=== PATIENT | male | born 1965 | race Caucasian/White ===

== ENCOUNTER 2025-08-21 09:25 | Emergency (ER) | payer MEDICAID, SELFPAY ==
[2025-08-21] VITALS (12 sets, daily range): BP systolic 171–218; BP diastolic 98–128; PULSE 75–104; RESP 16–98; TEMP 36.6–37.1; O2SAT 96–99; BMI 27.1
--- NOTE | 2025-08-21 09:34 | EKG_ITS ---
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
--- NOTE | 2025-08-21 10:09 | PC.NURSE ---
Patient to er via ems with c/o sudden onset of feeling weak and legs felt like legs were giving out on him while he was working on trailer at home, patient states he did not fall. Currently patient denes pain, skin warm, dry and pink. BP 218/128 and states he has not taking his bp medication or diabetic medication in approx. 1 year. FSBS 172, chart up to be seen by er provider, ekg completed, shown to dr. Chapa and placed on chart, daughter at bedside, call light within reach.
--- NOTE | 2025-08-21 10:13 | XR_ITS ---
Examination: AP chest single view Technique one AP portable upright chest single view Date and time: August 21, 2025, 10:19 AM INDICATIONS: Shortness of breath today. FINDINGS: No significant cardiac enlargement No pneumonia or pulmonary edema. Prominent osteopenia IMPRESSION: No pneumonia or pulmonary edema
--- NOTE | 2025-08-21 10:24 | EKG_ITS ---
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
--- NOTE | 2025-08-21 10:24 | PC.LAC ---
Alerted by him clerk that patient's heart rate increased to 170bpm, patient atrial fibrillation on the monitor, patient states he feels weak like he did earlier. Repeat EKG ordered.
[2025-08-21 10:40] LABS: INR 1.0 (0.9-1.3); Prothrombin Time 10.2 Seconds (9.0-12.2)
[2025-08-21 10:44] LABS: Alanine Aminotransferase 27 U/L (10-49); Albumin, Serum 4.4 gm/dL (3.5-5.0); Albumin/Globulin Ratio 2.0 (1.2-2.2); Alkaline Phosphatase 56 U/L (46-116); Anion Gap 13 (7-16); Aspartate Amino Transferase 33 U/L (0-34); BUN/Creatinine Ratio 9 Ratio (12-20); Bilirubin,Total 0.7 mg/dL (0.3-1.2); Blood Urea Nitrogen 16 mg/dL (9-23); Calcium 9.3 mg/dL (8.3-10.6); Calcium (Corrected) 9.3 mg/dL (8.5-10.1); Carbon Dioxide 22.9 mMol/L (20.0-31.0); Chloride 105 mMol/L (98-107); Creatinine (Component) 1.8 mg/dL (0.6-1.3); Estimated Creatinine Clearance 39.9 mL/min (>60); Globulin 2.2 gm/dL (2.3-3.5); Glucose 165 mg/dL (74-106); Osmolality,Calculated 286 (275-295); Potassium 3.4 mMol/L (3.4-5.1); Sodium 141 mMol/L (136-145); Total Protein 6.6 gm/dL (5.7-8.2); Troponin I 0.039 ng/mL (0.0-0.045); eGFR 43 See Note
--- NOTE | 2025-08-21 10:56 | PC.NURSE ---
Dr. Monk aware of patient's bp 215/118, Dr. Chapa at bedside.
--- NOTE | 2025-08-21 11:06 | PD.EDWEAK ---
ED Weakness RME/HPI General Chief complaint: Weakness Stated complaint: HYPERTENSION Time Seen by Provider: 08/21/25 10:28 Arrival date/time: 08/21/25 09:25 Mode of arrival: EMS Limitations: no limitations RME / HPI RME / HPI Narrative: Patient is a 59 year old male with PMH hypertension and Diabetes BIBA presented from home after acute onset shortness of breath, clammy skin, weakness and some mild pressure to chest, while working to get ready for a trip earlier this morning. After resting inside for 20 minutes he felt a bit better and called for ambulance. Patient states this has never happened before. Denies other acute symptoms at this time. Of note patient has not been taking any medications for either diabetes or hypertension for about a year. Medical Hx: HTN, Diabetes Surgical Hx: Ear surgery Family Hx: Son with 2 UT's & stroke; mother of cancer Social Hx: Drinks 1-2 vodka beverages per day, denies tobacoo and recreational drug use Medications: Patient does not remember HTN meds (hasn't taken in over a year) Allergies: No known drug allergies ED Course: -Initial vitals were 98.6 F, 103 HR, 18 Rr, 199/120 BP, 99% O2 on room air -Labs significant for Cr 1.8, Glucose 165, BNP 590, Trop 0.039 -Imaging included: -CXR that was negative for pneumonia or pulm edema -EKG's initially showing Sinus and then Sinus Tachycardia with premature atrial beats -In the ED, patient was given aspirin 324 mg PO x1 & labetalol 20 mg IV x1 Review of Systems Review of systems otherwise negative except what is mentioned above. Related Data Previous Rx's ?Medication ?Instructions ?Recorded amlodipine 10 mg tablet 10 mg PO QDAY #30 tabs 08/21/25 aspirin 81 mg tablet 81 mg PO QDAY #30 tabs 08/21/25 Allergies Allergy/AdvReac Type Severity Reaction Status Date / Time No Known Allergies Allergy Verified 08/21/25 09:38 Review of Systems Review of Systems Systems Reviewed: All systems reviewed, normal except as documented Past Medical History Past Medical History CARDIAC: Positive Hypertension (NOT ON MEDS X 1 YR) ENDOCRINE: Positive Diabetes Mellitus Type 2 (NOT MED COMPLIANT) Social History SMOKING STATUS: Never smoker ED Exam Narrative Physical exam: General: Appeared mildly anxious; A&Ox3 Skin: Warm, dry, intact, no obvious rash. HENT: NCAT, EOMI, not icteric. External ears normal. No rhinorrhea. Dry mucous membranes Cardiovascular: Tachycardic and rhythm, no murmur, +S1/S2. Respiratory: Lungs CTAB GI: Soft, nontender, non-distended. No guarding or rebound tenderness. Extremities: mild BL LE edema, no cyanosis, no clubbing. Extremity pulses present. No LE erythema, tenderness. Neuro: No focal deficits observed. Conversant, moving all extremities. No overt cerebellar signs/incoordination. Psychiatric: Cooperative, appropriate affect. General Limitations: Present no limitations Course Course Course Narrative: 1640h: Reviewed results with patient and discussed ED course. Has mildly elevated BNP, did have hypertensive urgency, blood pressure much improved compared with arrival. Is post labetalol and aspirin. Troponin is negative x 2, EKG with no significant acute abnormalities noted. Patient has not been taking blood pressure medication for many months. Advised on the importance of taking his medication to facilitate blood pressure control and prevent complications from uncontrolled blood pressure. Also discussed in depth lifestyle modifications to help with his hypertension as well. Of note he did have a period of irregular heart rhythm that was captured on telemetry strip though not captured on EKG. Possible that he went into paroxysmal atrial fibrillation with a rapid rate earlier today which precipitated his symptoms of generalized weakness. He is feeling well at this time. Have advised outpatient follow-up with cardiology for further evaluation and management. Will start on amlodipine 10 mg daily, advised to take aspirin daily at this time as well. Return precautions advised. To follow-up with cards. Quality Measures VTE prophylaxis Orders Category Date Time Status Siebel Administrator Q4H START 00 Care 08/21/25 10:13 Active Continuous Pulse Oximetry NOW Care 08/21/25 10:13 Active EKG (ED ONLY) *Do not use* NOW Care 08/21/25 09:35 Completed EKG (ED ONLY) *Do not use* NOW Care 08/21/25 10:24 Completed Insert IV NOW Care 08/21/25 10:14 Completed EKG (ED Only) Stat Exams 08/21/25 09:34 Draft EKG (ED Only) Stat Exams 08/21/25 10:24 Draft XR chest 1V portable Stat Exams 08/21/25 10:13 Completed B-Type Natriuretic Peptide Stat Lab 08/21/25 10:15 Completed CBC Stat Lab 08/21/25 10:15 Completed Comprehensive Metabolic Panel Stat Lab 08/21/25 10:15 Completed Prothrombin Time with INR Stat Lab 08/21/25 10:15 Completed Troponin I Routine Lab 08/21/25 12:55 Completed Troponin I Stat Lab 08/21/25 10:15 Completed Troponin I Stat Lab 08/21/25 15:30 Completed Aspirin Chew Med 08/21/25 11:00 Discontinued 324 mg PO X1 ONE Labetalol IV [Trandate IV] Med 08/21/25 11:03 Discontinued 20 mg IVP X1 ONE Oxygen Delivery NOW RT 08/21/25 10:13 Active Vital Signs Vital signs: Vital Signs Temperature 98.6 F 08/21/25 09:28 Pulse Rate 103 H 08/21/25 09:28 Respiratory Rate 18 08/21/25 09:28 Blood Pressure 199/120 H 08/21/25 09:28 Pulse Oximetry (%) 99 08/21/25 09:28 Oxygen Delivery Method Room Air 08/21/25 09:28 Pulse ox is 99% on room air which is adequate. Weakness MDM Narrative MDM Narrative:: Differentials for the patient include Hypertensive urgency, hypertensive emergency, CHF exacerbation, ACS, PE. Patient has history of hypertension and diabetes, the palpitations accompanied by sensation of dyspnea and elevated sBP >200 suggest hypertensive urgency. Patient does have elevated BNP likely secondary to HTN. Will r/o for ACS given chest discomfort earlier - trops to be trended. Patient was given po aspirin 324 mg x1 and labetalol 20 mg iv x1. Will monitor and re-eval. Patient data External records reviewed:: [facility] previous records Clinical information provided by:: patient Social determinants that could affect healthcare access:: none Patient has the following chronic illnesses:: Per patient, HTN & Diabetes How is presenting disease/condition affected by chronic disease/condition?: caused by Evaluation data The following diagnostics were reviewed and interpreted by me:: lab results, radiology exam(s) and EKG tracing(s) (EKG @ 09:42AM. NSR, rate 99, no STEMI. ) Lab and/or radiology exams considered but not ordered:: N/a Interpretation Summary: Ordering Physician: Pearl Chapa MD Date of Service: 08/21/25 Procedure(s): XR chest 1V portable Accession Number(s): [id number] cc: Thiago Moreno MD; Pearl Chapa MD~ Examination: AP chest single view Technique one AP portable upright chest single view Date and time: August 21, 2025, 10:19 AM INDICATIONS: Shortness of breath today. FINDINGS: No significant cardiac enlargement No pneumonia or pulmonary edema. Prominent osteopenia IMPRESSION: No pneumonia or pulmonary edema Dictated By: Thiago Moreno MD Signed By: <Electronically signed by Thiago Moreno MD in OV> 08/21/25 1031 Medications / Prescriptions Medications or Prescriptions considered but not ordered:: N/a Medication administrations:: Medication Administration History Discontinued Medications Aspirin (Aspirin 81 Mg Chew) 324 mg PO X1 ONE Stop: 08/21/25 11:01 Last Admin: 08/21/25 11:08 Dose: 324 mg Documented By: GILMER Labetalol HCl (Labetalol Inj 5 Mg/Ml Vial 20 Ml) 20 mg IVP X1 ONE Stop: 08/21/25 11:04 Last Admin: 08/21/25 11:08 Dose: 20 mg Documented By: GILMER See above Consultations Consultation(s) initiated? (list below): No Diagnosis Weakness Differential Diagnosis: acute myocardial infarction and other (Hypertensive Urgency, Hypertensive emergency, ACS, PE, CHF, PE) Most likely diagnosis given after review of the tests above:: Hypertensive Urgency Admission Indicated Admission indicated?: not indicated Admission Request Was there a request for admission?: No Disposition Plan Disposition Plan: Discharge Discharge Attestation Discharge Attestation: The patient and all family members were given an opportunity to ask questions and understood the discharge instructions. Discharge instructions specifically effects, indications for sooner follow up or return to the emergency department, and the expected course of current diagnosis. Patient condition: Stable Discharge Plan Plan Patient Disposition: HOME (Self Care) Patient condition on transfer: Stable Prescriptions/Referrals Prescriptions/Med Rec: New amlodipine 10 mg tablet 10 mg PO QDAY Qty: 30 0RF aspirin 81 mg tablet 81 mg PO QDAY Qty: 30 0RF Referrals: Robinson Palomares MD [Primary Care Provider, Family Practice] - In 1 week Roman Badillo MD [Physician, Cardiology] - In 1 week Problem List Clinical Impression: Hypertensive urgency, Arrhythmia Patient/Caregiver Discharge Instructions Education Materials: Low-Salt Choices, Eating Heart-Healthy Foods, ED About Arrhythmias, ED Hypertension, Established Additional Instructions: Some general health principles that can help you are the [employer] principles: Nutrition (eat a plant-based diet, avoiding meats in general, avoiding highly processed foods) Exercise (Daily exercise/walks as tolerated) Water (Drink adequate fresh water to maintain hydration, concentrating on water rather than on soda, coffee, tea, juice, etc for hydration) [place] (Spend time - 15-20 minutes or so with skin exposed in the centrifugal casting machine tender and late evening sun for Vitamin D health benefits) [place] (Avoid alcohol, illicit drugs, caffeinated beverages, smoking, etc) Air (Deep breathing exercises in the early mornings in fresh air) Rest (Adequate rest at night, going to bed a few hours before midnight and avoiding all screens/television/loud music in the time right before going to bed, also avoiding heavy meals just prior to going to bed) Trust in God (Spend time daily in Bible study and prayer - health benefits in contemplation of God's true character) Additional resources that can benefit: www.[employer], look under resources and seminars; also www.[employer].org - look under 'food'. Print Language: Romanian Stand Alone Forms: [employer] Info., Patient Portal Info Letter
[2025-08-21] MEDS: ASPIRIN 81 MG CHEW 324 MG PO (11:08)
[2025-08-21] MEDS: LABETALOL INJ 5 MG/ML VIAL 20 ML 20 MG IVP (11:08)
[2025-08-21 11:11] LABS: B-Type Natriuretic Peptide 590 pg/mL (0-100)
[2025-08-21 11:59] LABS: Basophils # (Auto) 0.1 Thou/mm3 (0.0-0.2); Basophils % (Auto) 1 % (0-2.5); Eosinophils # (Auto) 0.1 Thou/mm3 (0.0-0.5); Eosinophils % (Auto) 1 % (0-10); Hematocrit 43.5 % (41.0-53.0); Hemoglobin 14.6 g/dL (13.5-16.0); Immature Granulocytes Auto 0.02 Thou/mm3 (0.00-0.00); Lymphocytes # (Auto) 1.3 Thou/mm3 (1.0-4.8); Lymphocytes % (Auto) 17 % (10-50); Mean Corpuscular HGB Conc 33.6 g/dl (31.0-37.0); Mean Corpuscular Hemoglobin 27.8 pg (25.0-35.0); Mean Corpuscular Volume 83 fL (80-100); Monocytes # (Auto) 0.8 Thou/mm3 (0.0-0.8); Monocytes % (Auto) 10 % (0-12); Neutrophils # (Auto) 5.6 Thou/mm3 (1.8-7.7); Neutrophils % (Auto) 72 % (37-80); Nucleated Red Blood Cell # 0.00 Thou/mm3 (0.00-0.00); Nucleated Red Blood Cell % 0 /100 WBC (0); Platelet Count 236 Thou/mm3 (140-440); RDW Standard Deviation 39.2 fL (35.1-43.9); Red Blood Count 5.26 Miln/mm3 (4.50-5.90); White Blood Count 7.8 Thou/mm3 (3.8-10.6)
[2025-08-21 13:32] LABS: Troponin I 0.039 ng/mL (0.0-0.045)
[2025-08-21 16:01] LABS: Troponin I 0.037 ng/mL (0.0-0.045)
--- NOTE | 2025-08-21 16:33 | PC.NURSE ---
Dr. Chapa at bedside speaking with patient and regarding all results.
== END 2025-08-21 16:59 | disposition home or self-care (01) ==
PROVIDERS: Emergency Provider Family Medicine; PCP Family Medicine
DX: I16.0 Hypertensive urgency (principal); I49.1 Atrial premature depolarization; I10 Essential (primary) hypertension; E11.9 Type 2 diabetes mellitus without complications; Z80.9 Family history of malignant neoplasm, unspecified; Z82.3 Family history of stroke; Z91.148 Patient's other noncompliance with medication regimen for other reason
CPT/HCPCS: 36415; 71045; 80053; 83880; 84484; 85025; 85610; 93005; 96374; 99285; J3490; A9270; J1920